=== PATIENT | female | born 1965 | race Caucasian/White ===

== ENCOUNTER → 2021-12-28 | Emergency (ER) | payer OTHER | END | disposition home or self-care (01) | LOC: FER 19:23 | DX: Z53.21 Procedure and treatment not carried out due to patient leaving prior to being seen by health care provider (principal) ==

== ENCOUNTER 2022-03-08 11:51 | Emergency (ER) | payer OTHER ==
[2022-03-08 14:23] LABS: CORONAVIRUS 2019 SARS-COV-2 NEGATIVE (NEGATIVE); INFLUENZA A NAA NEGATIVE (NEGATIVE)
[2022-03-08 14:38] LABS: BASOPHIL 1.2 % (0-2); EOSINOPHIL 2.2 % (0-5); HCT 44.1 % (37.0-47.0); HGB 14.4 g/dl (12.5-16.0); LYMPHOCYTE 34.3 % (15-48); MCH 30.8 pg (25.0-31.0); MCHC 32.7 g/dL (32.0-36.0); MCV 94.2 fL (78.0-100.0); MPV 10.6 fL (6.0-9.5); NRBC 0; PLT 232 K/uL (150-400); RBC 4.68 M/uL (4.20-5.40); RDW 12.1 % (11.5-14.0); WBC 6.8 K/uL (4.0-10.5)
[2022-03-08 15:35] LABS: ALBUMIN 3.7 g/dL (3.4-5.0); BILIRUBIN - TOTAL 0.4 mg/dL (0.2-1.0); CREATININE 0.68 mg/dL (0.51-0.95); GLOBULIN (CALCULATION) 3.4 g/dL; POTASSIUM 4.3 mmol/L (3.5-5.1); TOTAL PROTEIN 7.1 g/dL (6.4-8.2)
[2022-03-08] MEDS ORDERED: CYCLOBENZAPRINE10 MG PO (15:46)
[2022-03-08] MEDS ORDERED: PREDNISONE 20MG20 MG PO (15:46)
[2022-03-08] MEDS ORDERED: NORCO 5-325 TA1 EACH PO (15:46)
== END 2022-03-08 16:49 | disposition home or self-care (01) ==
LOC: FER 11:51
PROVIDERS: Nurse Practitioner Family
DX: S39.012A Strain of muscle, fascia and tendon of lower back, initial encounter (principal); Z20.822 Contact with and (suspected) exposure to COVID-19
CPT/HCPCS: 36415; 71045; 80053; 84484; 85025; 85379; 93005; U0002